=== PATIENT | male | born 1965 | race Caucasian/White ===

== ENCOUNTER → 2024-09-15 | Outpatient (CLI) | payer OTHER, SELFPAY ==
--- NOTE | 2024-09-15 16:21 | XR_ITS ---
Examination: PA lateral chest 2 views TECHNIQUE: Upright PA lateral chest 2 views Exam date and time: September 15, 2024 1635 hours Comparison September 22, 2016 INDICATIONS: Shortness of breath beginning 2 years ago. FINDINGS: Normal heart size Lungs are clear. The osseous structures are intact IMPRESSION: No active disease
[2024-09-15 16:51] LABS: Basophils # (Auto) 0.1 Thou/mm3 (0.0-0.2); Basophils % (Auto) 1 % (0-2.5); Eosinophils # (Auto) 0.2 Thou/mm3 (0.0-0.5); Eosinophils % (Auto) 3 % (0-10); Hematocrit 44.6 % (41.0-53.0); Hemoglobin 15.2 g/dL (13.5-16.0); Immature Granulocytes % (Auto) 0 % (0-0); Immature Granulocytes Auto 0.03 Thou/mm3 (0.00-0.00); Lymphocytes # (Auto) 2.4 Thou/mm3 (1.0-4.8); Lymphocytes % (Auto) 32 % (10-50); Mean Corpuscular HGB Conc 34.1 g/dl (31.0-37.0); Mean Corpuscular Hemoglobin 29.4 pg (25.0-35.0); Mean Corpuscular Volume 86 fL (80-100); Monocytes # (Auto) 0.5 Thou/mm3 (0.0-0.8); Monocytes % (Auto) 7 % (0-12); Neutrophils # (Auto) 4.2 Thou/mm3 (1.8-7.7); Neutrophils % (Auto) 57 % (37-80); Nucleated Red Blood Cell % 0 /100 WBC (0); Platelet Count 360 Thou/mm3 (140-440); RDW Standard Deviation 41.3 fL (35.1-43.9); Red Blood Count 5.17 Miln/mm3 (4.50-5.90); White Blood Count 7.4 Thou/mm3 (3.8-10.6)
[2024-09-15 17:15] LABS: Glucose Estimated Average 97 mg/dL (80-131)
[2024-09-15 17:21] LABS: Vitamin D 25 Hydroxy Total 19.6 ng/mL (7.3-40.2)
[2024-09-15 17:42] LABS: Alanine Aminotransferase 50 U/L (10-49); Albumin, Serum 4.5 gm/dL (3.5-5.0); Albumin/Globulin Ratio 1.8 (1.2-2.2); Alkaline Phosphatase 84 U/L (46-116); Anion Gap 5 (7-16); Aspartate Amino Transferase 44 U/L (0-34); BUN/Creatinine Ratio 9 Ratio (12-20); Bilirubin,Total 0.7 mg/dL (0.3-1.2); Blood Urea Nitrogen 11 mg/dL (9-23); Calcium 9.5 mg/dL (8.3-10.6); Calcium (Corrected) 9.5 mg/dL (8.5-10.1); Carbon Dioxide 26.8 mMol/L (20.0-31.0); Chloride 107 mMol/L (98-107); Creatinine (Component) 1.2 mg/dL (0.6-1.3); Free T4 (Free Thyroxine) 1.72 ng/dL (0.89-1.76); Globulin 2.5 gm/dL (2.3-3.5); Glucose 87 mg/dL (74-106); Magnesium 2.4 mg/dL (1.6-2.6); Osmolality,Calculated 275 (275-295); Sodium 139 mMol/L (136-145); Thyroid Stimulating Hormone 0.98 uIU/mL (0.55-4.78); eGFR > 60 See Note
== END | disposition home or self-care (01) ==
PROVIDERS: PCP Internal Medicine; Referring Provider Internal Medicine; Visit Provider Radiology Diagnostic Radiology
DX: R06.09 Other forms of dyspnea (principal); E87.5 Hyperkalemia; E03.9 Hypothyroidism, unspecified; R53.83 Other fatigue
CPT/HCPCS: 36415; 71046; 80053; 82306; 83036; 83735; 84439; 84443; 85025

== ENCOUNTER → 2025-02-20 | Outpatient (CLI) | payer OTHER, SELFPAY ==
--- NOTE | 2025-02-20 | XR_ITS ---
Examination: PA lateral chest 2 views TECHNIQUE: Upright PA lateral chest 2 views Exam date and time: February 20, 2025 1315 hours INDICATIONS: Shortness of breath today. FINDINGS: Early bibasilar pneumonia Normal heart size The osseous structures are intact IMPRESSION: Early bibasilar pneumonia
[2025-02-20 13:33] LABS: Misc Send Out* See Sep Rpt
== END | disposition home or self-care (01) ==
PROVIDERS: PCP Nurse Practitioner Family; Referring Provider Nurse Practitioner Family; Visit Provider Radiology Diagnostic Radiology
DX: J18.9 Pneumonia, unspecified organism (principal); Z79.899 Other long term (current) drug therapy
CPT/HCPCS: 71046

== ENCOUNTER → 2025-02-21 | Outpatient (CLI) | payer OTHER, SELFPAY ==
--- NOTE | 2025-02-21 10:34 | XR_ITS ---
Examination: Diagnostic digital mammography, bilateral Computer aided detection 3-D breast Tomosynthesis, bilateral Date and time of exam: February 21, 2025 1121 hours Compared to mammograms dating to October 05, 2022 INDICATIONS: Bilateral breast lumps beginning 7 months ago Technique: Nonmagnified MLO, CC views of the breasts to been obtained, reconstructed from 3-D Tomosynthesis images. R2 computer aided detection program utilized for evaluation of suspicious masses and/or abnormal calcifications. 3-D Tomosynthesis images obtained. Findings: The breasts are heterogeneously dense, which may obscure small masses 12 mm focal asymmetry inner right breast CC view, posterior depth, 4.3 cm from the nipple noted also on the spot compression views Impression: BI-RADS Category 3: Probably benign findings One additional 6 month right mammogram follow-up is needed to document stability of 12 mm focal asymmetry inner right breast noted on the current CC view.
--- NOTE | 2025-02-21 10:36 | XR_ITS ---
Examination: Breast ultrasound complete, bilateral Date and time of exam: February 21, 2025 1108 hours INDICATIONS: Bilateral breast enlargement cardiac and pain beginning one month ago Technique: Real-time grayscale ultrasonographic imaging bilateral breasts, including all 4 quadrants as well as nipple retroareolar and axillary regions. Findings: Sonographic images right breast Retroareolar probable glandular tissue 3.6 x 1.4 x 4.0 cm Sonographic images left breast Probable retroareolar glandular tissue 4.1 x 1.7 x 3.8 cm IMPRESSION: BI-RADS Category 3: Probably benign findings One additional 3-6 month follow-up bilateral breast sonography is needed to document stability of probable glandular tissue in both breasts described above
== END | disposition home or self-care (01) ==
PROVIDERS: PCP Internal Medicine; Referring Provider Nurse Practitioner Family; Visit Provider Nurse Practitioner Family
DX: N64.89 Other specified disorders of breast (principal); R92.333 Mammographic heterogeneous density, bilateral breasts
CPT/HCPCS: 76641; 77062; 77066; G0279

== ENCOUNTER → 2025-03-23 | Outpatient (CLI) | payer OTHER, SELFPAY ==
--- NOTE | 2025-03-23 16:25 | XR_ITS ---
Examination: PA lateral chest 2 views TECHNIQUE: Upright PA and lateral chest 2 views Date and time: March 23, 2025 1703 hours INDICATIONS: Pneumonia on earlier chest films including February 20, 2025 FINDINGS: Normal heart size No current pneumonia The osseous structures are demineralized IMPRESSION: No pneumonia currently identified
== END | disposition home or self-care (01) ==
PROVIDERS: PCP Nurse Practitioner Family; Referring Provider Nurse Practitioner Family; Visit Provider Nurse Practitioner Family
DX: J18.9 Pneumonia, unspecified organism (principal)
CPT/HCPCS: 71046

== ENCOUNTER → 2025-06-29 | Outpatient (CLI) | payer OTHER, SELFPAY ==
--- NOTE | 2025-06-29 15:30 | XR_ITS ---
Examination: CT brain head without contrast. 2-D sagittal coronal reconstructions Date and time of exam:June 29, 2025, 1527 hours INDICATIONS: Intermittent disorientation and disequilibrium several weeks CTDI: vol (mGy):52.6 DLP: (mGycm):1097 Technique: Multiple CT axial sections of the brain have been obtained, 5 mm slice thickness. Contrast has not been administered. 2-D sagittal, coronal reconstructions have been obtained Low dose protocols were performed. One or more of the following dose reduction techniques were used; automated exposure control, adjustment of the mA and/or KV according to patient size, use of iterative reconstruction technique. Findings: No significant ventricular enlargement. Intra-axial or extra-axial hemorrhage density is not seen. No mass effect or midline shift Basal cisterns are not remarkable. Fourth ventricle is midline. Cranial vault intact. Impression: Negative for acute hemorrhage, mass effect or midline shift If symptoms persist, consider brain MRI MRA without contrast, stroke protocol, follow-up
== END | disposition home or self-care (01) ==
PROVIDERS: PCP Nurse Practitioner Family; Referring Provider Nurse Practitioner Family; Visit Provider Nurse Practitioner Family
DX: R41.0 Disorientation, unspecified (principal)
CPT/HCPCS: 70450

== ENCOUNTER 2025-09-13 09:39 | Inpatient (IN) | payer OTHER, SELFPAY ==
[2025-09-13 09:45] VITALS: BP 145/93; PULSE 120; RESP 16; TEMP 36.8; O2SAT 96; BMI 27.0
--- NOTE | 2025-09-13 09:56 | XR_ITS ---
EXAMINATION: AP chest single view TECHNIQUE: AP portable upright chest single view Date and time: September 13, 2025, 1053 hours, comparison March 23, 2025 INDICATIONS: Chest pain shortness of breath beginning today. FINDINGS: Poor inspiratory effort Normal heart size The Nitish structures are demineralized Probable mild atelectasis left base IMPRESSION: Poor inspiratory effort chest x-ray
--- NOTE | 2025-09-13 09:56 | EKG_ITS ---
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: : 1965 Requested By: Dashawn Martinez (CHANDAN) Order Number: [id number] Reading MD: Dashawn Martinez (SCISSORS SHARPENER) Measurements Intervals [place] Rate: 109 P: 43 CT: 175 QRS: 68 QRSD: 114 T: 93 QT: 353 QTc: 477 Interpretive Statements SINUS TACHYCARDIA POSSIBLE INFERIOR MYOCARDIAL INFARCTION , PROBABLY OLD [30 ms Q WAVE IN II/aVF] MODERATE T-WAVE ABNORMALITY, CONSIDER ANTEROLATERAL ISCHEMIA [-0.1+ mV T-WAVE IN V3-V6] Compared to ECG 11/15/2023 16:45:19 Myocardial infarct finding now present T-wave abnormality now present Possible ischemia now present Sinus rhythm no longer present /store/S0/[id number]/[id number].pdf
--- NOTE | 2025-09-13 10:08 | XR_ITS ---
Examination: CT abdomen and pelvis without contrast. Coronal 3-D reconstructions. Sagittal 2-D reconstructions. Date and time of exam: September 13, 2025, 1025 hours, comparison November 15, 2023 INDICATIONS: Onset mid abdominal pain with nausea vomiting today CTDI: vol (mGy): 6.82 DLP: (mGycm): 429 Technique: Axial images of the abdomen have been obtained, 3 mm slice thickness Intravenous contrast material has not been administered. Low dose protocols were performed. One or more of the following dose reduction techniques were used; automated exposure control, adjustment of the mA and/or KV according to patient size, use of iterative reconstruction technique. Findings: No focal liver lesions No gallstones Spleen is not enlarged No pancreatic or adrenal mass Bilateral 1 to 2 mm renal calculi, perinephric stranding, no hydronephrosis or ureteral calculi No pericecal inflammatory change Multiple fluid distended air distended small bowel loops in the anterior abdomen 8 mm fat-containing umbilical hernia Contracted urinary bladder Transverse prostate dimension 4.3 cm Significant osteopenia with advanced degenerative disc disease L4-L5 IMPRESSION: Small bowel obstruction pattern, consider Gastrografin small bowel series follow-up
--- NOTE | 2025-09-13 10:10 | XR_ITS ---
Examination: Abdomen sonogram, Limited Date and time of exam: September 13, 2025, 12:21 p.m. INDICATIONS: Onset mid abdominal pain today Technique: Real-time england scale transabdominal sonographic images of the upper abdomen obtained. Findings: Normal gallbladder Normal common bile duct 0.4 cm Pancreatic head 2.4 cm Liver 12.2 cm fatty infiltration no focal liver lesions Normal hepatopetal portal venous flow Patent IVC IMPRESSION: Normal gallbladder Normal common bile duct
[2025-09-13 10:13] LABS: Basophils # (Auto) 0.0 Thou/mm3 (0.0-0.2); Basophils % (Auto) 0 % (0-2.5); Eosinophils # (Auto) 0.0 Thou/mm3 (0.0-0.5); Eosinophils % (Auto) 0 % (0-10); Hematocrit 48.0 % (41.0-53.0); Hemoglobin 16.6 g/dL (13.5-16.0); Immature Granulocytes Auto 0.05 Thou/mm3 (0.00-0.00); Lymphocytes # (Auto) 0.9 Thou/mm3 (1.0-4.8); Lymphocytes % (Auto) 8 % (10-50); Mean Corpuscular HGB Conc 34.6 g/dl (31.0-37.0); Mean Corpuscular Hemoglobin 29.6 pg (25.0-35.0); Mean Corpuscular Volume 86 fL (80-100); Monocytes # (Auto) 0.4 Thou/mm3 (0.0-0.8); Monocytes % (Auto) 4 % (0-12); Neutrophils # (Auto) 9.8 Thou/mm3 (1.8-7.7); Neutrophils % (Auto) 88 % (37-80); Nucleated Red Blood Cell # 0.00 Thou/mm3 (0.00-0.00); Nucleated Red Blood Cell % 0 /100 WBC (0); Platelet Count 353 Thou/mm3 (140-440); RDW Standard Deviation 40.3 fL (35.1-43.9); Red Blood Count 5.61 Miln/mm3 (4.50-5.90); White Blood Count 11.2 Thou/mm3 (3.8-10.6)
[2025-09-13 10:17] VITALS: PULSE 103; RESP 14; RESP 94
[2025-09-13 10:23] LABS: INR 1.0 (0.9-1.3); Partial Thromboplastin Time 29.1 Seconds (22.0-36.0); Prothrombin Time 10.6 Seconds (9.0-12.2)
[2025-09-13 10:28] LABS: B-Type Natriuretic Peptide < 20 pg/mL (0-100)
[2025-09-13 10:33] LABS: Alanine Aminotransferase 53 U/L (10-49); Albumin, Serum 5.0 gm/dL (3.5-5.0); Albumin/Globulin Ratio 1.7 (1.2-2.2); Alkaline Phosphatase 86 U/L (46-116); Anion Gap 12 (7-16); Aspartate Amino Transferase 36 U/L (0-34); BUN/Creatinine Ratio 7 Ratio (12-20); Bilirubin,Total 0.8 mg/dL (0.3-1.2); Blood Urea Nitrogen 9 mg/dL (9-23); Calcium 10.0 mg/dL (8.3-10.6); Calcium (Corrected) 10.0 mg/dL (8.5-10.1); Carbon Dioxide 23.4 mMol/L (20.0-31.0); Chloride 104 mMol/L (98-107); Creatinine (Component) 1.3 mg/dL (0.6-1.3); Estimated Creatinine Clearance 61.2 mL/min (>60); Globulin 2.9 gm/dL (2.3-3.5); Glucose 131 mg/dL (74-106); Lipase 22 U/L (12-53); Magnesium 2.1 mg/dL (1.6-2.6); Osmolality,Calculated 278 (275-295); Potassium 4.0 mMol/L (3.4-5.1); Sodium 139 mMol/L (136-145); Total Protein 7.9 gm/dL (5.7-8.2); Troponin I < 0.002 ng/mL (0.0-0.045); eGFR > 60 See Note
[2025-09-13] MEDS: MORPHINE SULF INJ 4 MG/ML VIAL IVP (10:36)
[2025-09-13 10:37] VITALS: BP 169/105; PULSE 102
[2025-09-13] MEDS: ONDANSETRON INJ 2 MG/ML INJ 2 ML 4 MG IVP ×2 (10:37→15:35)
[2025-09-13] MEDS: METOPROLOL TARTRATE INJ 1 MG/ML AMP 5 ML 5 MG IVP (10:37)
[2025-09-13 11:30] VITALS: BP 141/94; PULSE 88; RESP 15; TEMP 36.8; O2SAT 98
--- NOTE | 2025-09-13 11:32 | PD.EDABDPN ---
ED Abdominal Pain RME/HPI General Chief Complaint: Abdominal Pain Stated complaint: ABD PAIN, DISTENDED Time seen by provider: 09/13/25 09:55 Arrival date/time: 09/13/25 09:39 Limitations: no limitations RME / HPI RME / HPI narrative: 60 year old male with history of atrial fibrillation, hypertension, hypothyroidism presents to the ED for evaluation of abdominal pain today. Pain described as aching and feeling bloated, rating as moderate. Accompanied by nausea. Denies any known modifying factors at home. Denies any fevers, chills, chest pain, cough, diarrhea, or urinary symptoms. Related Data Home Medications ?Medication ?Instructions ?Recorded ?Confirmed gabapentin 600 mg tablet 600 mg PO TID #0 tabs 09/22/16 05/20/18 zolpidem 12.5 mg tablet,extended 12.5 mg PO HS #0 mg 09/22/16 05/20/18 release,multiphase (Ambien CR) aspirin 81 mg chewable tablet 81 mg PO QDAY ##0 12/15/16 05/20/18 carvedilol 3.125 mg tablet (Coreg) 3.125 mg PO BID #0 tabs 12/15/16 05/20/18 lisinopril 20 mg tablet 20 mg PO BID #0 tabs 12/15/16 05/20/18 Levothyroxine * (SYNTHROID *) 25 mcg PO QDAY #0 tabs 08/17/17 05/20/18 Previous Rx's ?Medication ?Instructions ?Recorded hydrochlorothiazide 25 mg tablet 50 mg (2 x 25 mg) PO QAM #30 tabs 10/02/16 Allergies Allergy/AdvReac Type Severity Reaction Status Date / Time niacin Allergy Verified 09/13/25 09:40 FLU VACCINE Allergy Severe guillain Uncoded 09/13/25 09:44 barre Review of Systems Review of Systems Systems Reviewed: All systems reviewed, normal except as documented Past Medical History Past Medical History NEUROLOGIC: Positive Migraine CARDIAC: Positive Atrial Fibrillation, Hypercholesterolemia and Hypertension ENDOCRINE: Positive Hypothyroidism Surgical History SURGICAL: Positive Knee Sx (RIGHT KNEE REPLACEMENT) and of Back Surgery OTHER SURGICAL HX: 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 Social History SMOKING STATUS: Never smoker ED Exam General Limitations: Present no limitations General appearance: Present alert and in no apparent distress Head Head exam: Present atraumatic and normocephalic Eye Eye exam: Present normal appearance, PERRL and EOMI ENT ENT exam: Present normal exam, normal oropharynx and mucous membranes moist Neck Neck exam: Present normal inspection, full ROM and trachea midline Chest Chest inspection: Present normal inspection and symmetric chest wall rise Respiratory Respiratory exam: Present normal lung sounds bilaterally Cardiovascular Cardiovascular exam: Present regular rate, normal rhythm and normal heart sounds Abdominal Exam Abdominal exam: Present soft, distention, tenderness (to mid upper abdomen), normal bowel sounds and other (high pitched bowel sounds ) Extremities Exam Extremities exam: Present normal inspection and full ROM Back Exam Back exam: Present normal inspection and full ROM Neurological Exam Neurological exam: Present alert, oriented X3 and CN II-XII intact Psychiatric Psychiatric exam: Present normal affect and normal mood Skin Skin exam: Present warm, dry, intact and normal color Course Quality Measures none Orders Category Date Time Status Admit to Inpatient Status Routine Admission 09/13/25 14:49 Active Patient Condition Routine Admission 09/13/25 14:49 Ordered COVID-19 Screening Questionnaire NOW Care 09/13/25 13:54 Active Button Breaker NOW Care 09/13/25 09:56 Active Continuous Pulse Oximetry NOW Care 09/13/25 10:06 Completed Decision to Admit X1 Care 09/13/25 13:53 Completed EKG (ED ONLY) *Do not use* NOW Care 09/13/25 09:56 Completed Insert IV NOW Care 09/13/25 09:56 Active Insert NG / OG tube NOW Care 09/13/25 14:54 Active Miscellaneous Nursing Order NOW Care 09/13/25 15:20 Active NG / OG Tube to LIS NOW Care 09/13/25 14:54 Active NPO NOW Care 09/13/25 14:50 Active Notify provider NEEDED Care 09/13/25 14:49 Active Diet NPO (NOW) Diet 09/13/25 14:[address] abdomen pelvis wo con Stat Exams 09/13/25 10:08 Completed EKG (ED Only) Stat Exams 09/13/25 09:56 Draft US gall bladder Stat Exams 09/13/25 10:10 Completed XR chest 1V portable Stat Exams 09/13/25 09:56 Completed XR small bowel double contrast Stat Exams 09/13/25 13:52 Ordered B-Type Natriuretic Peptide Stat Lab 09/13/25 10:03 Completed CBC AM DRAW Lab 09/14/25 05:00 Ordered CBC AM DRAW Lab 09/15/25 05:00 Ordered CBC AM DRAW Lab 09/16/25 05:00 Ordered CBC AM DRAW Lab 09/17/25 05:00 Ordered CBC AM DRAW Lab 09/18/25 05:00 Ordered CBC AM DRAW Lab 09/19/25 05:00 Ordered CBC AM DRAW Lab 09/20/25 05:00 Ordered CBC AM DRAW Lab 09/21/25 05:00 Ordered CBC AM DRAW Lab 09/22/25 05:00 Ordered CBC AM DRAW Lab 09/23/25 05:00 Ordered CBC Stat Lab 09/13/25 10:03 Completed Comprehensive Metabolic Panel AM DRAW Lab 09/14/25 05:00 Ordered Comprehensive Metabolic Panel AM DRAW Lab 09/15/25 05:00 Ordered Comprehensive Metabolic Panel AM DRAW Lab 09/16/25 05:00 Ordered Comprehensive Metabolic Panel AM DRAW Lab 09/17/25 05:00 Ordered Comprehensive Metabolic Panel AM DRAW Lab 09/18/25 05:00 Ordered Comprehensive Metabolic Panel AM DRAW Lab 09/19/25 05:00 Ordered Comprehensive Metabolic Panel AM DRAW Lab 09/20/25 05:00 Ordered Comprehensive Metabolic Panel AM DRAW Lab 09/21/25 05:00 Ordered Comprehensive Metabolic Panel AM DRAW Lab 09/22/25 05:00 Ordered Comprehensive Metabolic Panel AM DRAW Lab 09/23/25 05:00 Ordered Comprehensive Metabolic Panel Stat Lab 09/13/25 10:03 Completed Drug Screen,Urine Stat Lab 09/13/25 12:57 Completed Lipase Stat Lab 09/13/25 10:03 Completed Magnesium AM DRAW Lab 09/14/25 05:00 Ordered Magnesium AM DRAW Lab 09/15/25 05:00 Ordered Magnesium AM DRAW Lab 09/16/25 05:00 Ordered Magnesium AM DRAW Lab 09/17/25 05:00 Ordered Magnesium AM DRAW Lab 09/18/25 05:00 Ordered Magnesium AM DRAW Lab 09/19/25 05:00 Ordered Magnesium AM DRAW Lab 09/20/25 05:00 Ordered Magnesium AM DRAW Lab 09/21/25 05:00 Ordered Magnesium AM DRAW Lab 09/22/25 05:00 Ordered Magnesium AM DRAW Lab 09/23/25 05:00 Ordered Magnesium Stat Lab 09/13/25 10:03 Completed Partial Thromboplastin Time Stat Lab 09/13/25 10:03 Completed Phosphorous AM DRAW Lab 09/14/25 05:00 Ordered Phosphorous AM DRAW Lab 09/15/25 05:00 Ordered Phosphorous AM DRAW Lab 09/16/25 05:00 Ordered Phosphorous AM DRAW Lab 09/17/25 05:00 Ordered Phosphorous AM DRAW Lab 09/18/25 05:00 Ordered Phosphorous AM DRAW Lab 09/19/25 05:00 Ordered Phosphorous AM DRAW Lab 09/20/25 05:00 Ordered Phosphorous AM DRAW Lab 09/21/25 05:00 Ordered Phosphorous AM DRAW Lab 09/22/25 05:00 Ordered Phosphorous AM DRAW Lab 09/23/25 05:00 Ordered Prothrombin Time with INR Stat Lab 09/13/25 10:03 Completed Troponin I Stat Lab 09/13/25 10:03 Completed Urinalysis Stat Lab 09/13/25 12:57 Completed Urinalysis, C/S if Indicated Stat Lab 09/13/25 12:57 Completed HYDROmorphone INJ [Dilaudid Inj] Med 09/13/25 14:08 Discontinued 0.5 mg IVP X1 ONE Heparin Inj Med 09/13/25 21:00 Active 5,000 unit SC Q12HR Metoprolol Tartrate Inj [Lopressor Inj] Med 09/13/25 10:09 Discontinued 5 mg IVP X1 ONE Morphine* Inj Med 09/13/25 14:58 Discontinued 2 mg IVP X1 ONE Morphine* Inj Med 09/13/25 15:00 Discontinued 2 mg IVP X1 ONE Morphine* Inj Med 09/13/25 10:17 Discontinued 4 mg IVP X1 ONE Ondansetron Inj [Zofran Inj] Med 09/13/25 14:49 Active 4 mg IVP Q6H PRN Ondansetron Inj [Zofran Inj] Med 09/13/25 10:17 Discontinued 4 mg IVP X1 ONE Ondansetron Inj [Zofran Inj] Med 09/13/25 14:08 Discontinued 4 mg IVP X1 ONE Pantoprazole Inj [Protonix Inj] Med 09/14/25 09:00 Active 40 mg IVP QDAY Code Status Routine Oth 09/13/25 14:49 Ordered Oxygen Delivery NOW RT 09/13/25 10:06 Active Transfer Order Routine Transfer 09/13/25 15:19 Active See above Vital Signs Vital signs: Vital Signs Temperature 98.3 F 09/13/25 09:45 Pulse Rate 120 H 09/13/25 09:45 Respiratory Rate 16 09/13/25 09:45 Blood Pressure 145/93 H 09/13/25 09:45 Pulse Oximetry (%) 96 09/13/25 09:45 Oxygen Delivery Method Room Air 09/13/25 09:45 Pulse ox is 96% on room air which is adequate. Abdominal Pain MDM MDM Narrative MDM Narrative:: Nataly Virginiegustavo Gotti am scribing for and in the presence of Dr. Gao. Patient data External records reviewed:: [facility] previous records Clinical information provided by:: patient Social determinants that could affect healthcare access:: none Patient has the following chronic illnesses:: atrial fibrillation, hypertension, hypothyroidism How is presenting disease/condition affected by chronic disease/condition?: uneffected by Evaluation data The following diagnostics were reviewed and interpreted by me:: lab results, radiology exam(s) and EKG tracing(s) (EKG @ 09:57h, interpreted by me, sinus tachycardia, rate 109, no STEMI. ) Lab and/or radiology exams considered but not ordered:: None Interpretation Summary: Ordering Physician: Juan BORRERO)Dashawn NP Date of Service: 09/13/25 Procedure(s): XR chest 1V portable Accession Number(s): [id number] cc: Juan BORRERO)Dashawn NP; Eric Dobbins MD; Abel Henry MD~ EXAMINATION: AP chest single view TECHNIQUE: AP portable upright chest single view Date and time: September 13, 2025, 1053 hours, comparison March 23, 2025 INDICATIONS: Chest pain shortness of breath beginning today. FINDINGS: Poor inspiratory effort Normal heart size The Nitish structures are demineralized Probable mild atelectasis left base IMPRESSION: Poor inspiratory effort chest x-ray Dictated By: Eric Dobbins MD Signed By: <Electronically signed by Eric Dobbins MD in OV> 09/13/25 1111 Ordering Physician: Anirudh Gao MD Date of Service: 09/13/25 Procedure(s): CT abdomen pelvis wo con Accession Number(s): [id number] cc: Anirudh Gao MD; Eric Dobbins MD; Abel Henry MD~ Examination: CT abdomen and pelvis without contrast. Coronal 3-D reconstructions. Sagittal 2-D reconstructions. Date and time of exam: September 13, 2025, 1025 hours, comparison November 15, 2023 INDICATIONS: Onset mid abdominal pain with nausea vomiting today CTDI: vol (mGy): 6.82 DLP: (mGycm): 429 Technique: Axial images of the abdomen have been obtained, 3 mm slice thickness Intravenous contrast material has not been administered. Low dose protocols were performed. One or more of the following dose reduction techniques were used; automated exposure control, adjustment of the mA and/or KV according to patient size, use of iterative reconstruction technique. Findings: No focal liver lesions No gallstones Spleen is not enlarged No pancreatic or adrenal mass Bilateral 1 to 2 mm renal calculi, perinephric stranding, no hydronephrosis or ureteral calculi No pericecal inflammatory change Multiple fluid distended air distended small bowel loops in the anterior abdomen 8 mm fat-containing umbilical hernia Contracted urinary bladder Transverse prostate dimension 4.3 cm Significant osteopenia with advanced degenerative disc disease L4-L5 IMPRESSION: Small bowel obstruction pattern, consider Gastrografin small bowel series follow-up Dictated By: Eric Dobbins MD Signed By: <Electronically signed by Eric Dobbins MD in OV> 09/13/25 1127 Ordering Physician: Anirudh Gao MD Date of Service: 09/13/25 Procedure(s): US gall bladder Accession Number(s): [id number] cc: Anirudh Gao MD; Eric Dobbins MD; Abel Henry MD~ Examination: Abdomen sonogram, Limited Date and time of exam: September 13, 2025, 12:21 p.m. INDICATIONS: Onset mid abdominal pain today Technique: Real-time england scale transabdominal sonographic images of the upper abdomen obtained. Findings: Normal gallbladder Normal common bile duct 0.4 cm Pancreatic head 2.4 cm Liver 12.2 cm fatty infiltration no focal liver lesions Normal hepatopetal portal venous flow Patent IVC IMPRESSION: Normal gallbladder Normal common bile duct Dictated By: Eric Dobbins MD Signed By: <Electronically signed by Eric Dobbins MD in OV> 09/13/25 1310 Medications / Prescriptions Medications or Prescriptions considered but not ordered:: None Medication administrations:: Medication Administration History Heparin Sodium (Porcine) (Heparin Sod Inj 5000 Unit/Ml Vial) 5,000 unit SC Q12HR LIZET Stop: 09/27/25 20:59 Ondansetron HCl (Ondansetron Inj 2 Mg/Ml Inj 2 Ml) 4 mg IVP Q6H PRN; Protocol PRN Reason: NAUSEA OR VOMITING Stop: 10/13/25 14:48 Pantoprazole Sodium (Pantoprazole Inj 40 Mg Vial) 40 mg IVP QDAY LIZET Stop: 10/14/25 08:59 Discontinued Medications Hydromorphone HCl (Hydromorphone Inj 2 Mg/Ml Vial) 0.5 mg IVP X1 ONE Stop: 09/13/25 14:09 Last Admin: 09/13/25 15:35 Dose: 0.5 mg Documented By: VG Metoprolol Tartrate (Metoprolol Tartrate Inj 1 Mg/Ml Amp 5 Ml) 5 mg IVP X1 ONE Stop: 09/13/25 10:10 Last Admin: 09/13/25 10:37 Dose: 5 mg Documented By: VG Morphine Sulfate (Morphine Sulf Inj 4 Mg/Ml Vial) 4 mg IVP X1 ONE Stop: 09/13/25 10:18 Last Admin: 09/13/25 10:36 Dose: 4 mg Documented By: VG Morphine Sulfate (Morphine Sulf Inj 4 Mg/Ml Vial) 2 mg IVP X1 ONE Stop: 09/13/25 14:59 Morphine Sulfate (Morphine Sulf Inj 4 Mg/Ml Vial) 2 mg IVP X1 ONE Stop: 09/13/25 15:01 Ondansetron HCl (Ondansetron Inj 2 Mg/Ml Inj 2 Ml) 4 mg IVP X1 ONE; Protocol Stop: 09/13/25 10:18 Last Admin: 09/13/25 10:37 Dose: 4 mg Documented By: VG Ondansetron HCl (Ondansetron Inj 2 Mg/Ml Inj 2 Ml) 4 mg IVP X1 ONE; Protocol Stop: 09/13/25 14:09 Last Admin: 09/13/25 15:35 Dose: 4 mg Documented By: CANDI See above Consultations Consultation(s) initiated? (list below): Yes Consultation #1 (Physician, Specialty, Details): [id number] with surgeon Dr[address] Palomares. Discussed patients PMHx, HPI, ED course, exam findings, labs, and radiology results. He recommends gastrogrfin small bowel series. He agrees to consult. Consultation #2 (Physician, Specialty, Details): [id number] I spoke with hospitalist team B for admission. Diagnosis Differential diagnosis abdominal pain: abdominal pain, gastroenteritis, pancreatitis and small bowel obstruction Most likely diagnosis given after review of the tests above:: Small bowel obstruction Admission Indicated Admission indicated?: indicated Admission Request Was there a request for admission?: Yes Admission Attestation Admission request attestation: Discussed case with [] from Hospitalist service regarding admission. Discussed patients ED course, exam findings, labs, and radiology results. The Hospitalist [agrees,declines] to accept the patient for admission. Disposition Plan Disposition Plan: Admit Discharge Plan Plan Patient Disposition: Admit Acute Care w/in Hospital Prescriptions/Referrals Prescriptions/Med Rec: No Action gabapentin 600 MG tablet 600 mg PO TID Qty: 0 zolpidem [Ambien CR] 12.5 MG/BOTTLE tablet,ext release multiphase 12.5 mg PO HS Qty: 0 hydrochlorothiazide 25 MG tablet 50 mg PO QAM Qty: 30 0RF lisinopril 20 MG tablet 20 mg PO BID Qty: 0 carvedilol [Coreg] 3.125 MG tablet 3.125 mg PO BID Qty: 0 aspirin 81 MG tablet,chewable 81 mg PO QDAY Qty: 0 Levothyroxine * (SYNTHROID *) 25 MCG tablet 25 mcg PO QDAY Qty: 0 Referrals: Abel Henry([facility]MD [Primary Care Provider, Family Practice] - In 1 week Problem List Clinical Impression: SBO (small bowel obstruction) Patient/Caregiver Discharge Instructions Print Language: Samoan Stand Alone Forms: Mamie Award Info., Patient Portal Info Letter
[2025-09-13 13:01] LABS: Collection Type, Urine Clean Catch; Squamous Epithelial Cell,Urine 0 /hpf (0-5)
[2025-09-13 13:02] VITALS: BP 155/80; PULSE 92; RESP 16; TEMP 36.9; O2SAT 98
[2025-09-13 13:35] LABS: Amphetamine/Methamp Scrn,U Negative (Negative); Barbiturate Screen,Urine Negative (Negative); Benzodiazepines Screen,Urine Negative (Negative); Benzoylecgonine Screen, Ur Negative (Negative); Fentanyl Screen,Urine Negative (Negative); Opiate Screen,Urine Positive (Negative); THC Screen,Urine Negative (Negative)
[2025-09-13 13:38] LABS: Bacteria,Urine Rare; Bilirubin,Urine 1+ (Negative); Blood,Urine Negative (Negative); Clarity,Urine Clear (Clear/Hazy); Color,Urine Yellow (Lt Yel-Yel); Culture Indicated,Urine Not Indicated; Glucose, Urine Negative (Negative); Ketones,Urine 1+ (Negative); Leukocyte Esterase,Urine Negative (Negative); Nitrite,Urine Negative (Negative); PH,Urine 7.0 (5.0-7.0); Protein,Urine 1+ (Neg - Trace); RBC,Urine 2 /hpf (0-3); Specific Gravity,Urine 1.039 (1.001-1.035); Urobilinogen,Urine 3.0 mg/dL (0.0-1.0); WBC,Urine 2 /hpf (0-5)
--- NOTE | 2025-09-13 13:52 | XR_ITS ---
EXAMINATION: Small bowel series AP abdomen 3 views Date and time: September 30, 2025, 1418 hours INDICATIONS: No bowel movement with nausea vomiting this week, small bowel obstruction pattern on CT abdomen/pelvis study this morning TECHNIQUE AND FINDINGS: 120 cc Gastrografin administered AP portable semiupright abdomen films, immediate, 30 minutes, 1 hour Contrast in distended small bowel loops IMPRESSION: Small bowel obstruction pattern Recommend follow-up abdomen films 6:00 p.m. APM 10:00 p.m.
--- NOTE | 2025-09-13 15:21 | ESHP_ITS ---
<Statement entered by Jeremiah Teixeira MD - 09/14/25 15:14> Patient seen and examined at bedside. I discussed and supervised with the production intern physician who took care of this patient. I personally saw and examined the patient. I agree with most of the assessment and plan. Plan of care discussed with attending Dr. Kelsea Teixeira MD PGY-2 Documentation for date of: 09/13/25 HPI History of Present Illness History of present illness: History of Present Illness: Anirudh Thakur is 60yM with PMH of Chronic Lyme disease, A-fib, CKD stage III disease, hypertension, hypothyroid, chronic pain, presented to the ED on 09/13/2025 with worsening upper abdominal pain since last night. At the time, patient was eating some nuts, during which he started to feel progressive and constant upper abdominal pelvic pain accompanied by extreme nauseous and headache. He noted that he did have some bowel movement after the symptoms started. Patient does not have any pain in his lower abdomen or on the sides. Denies chest pain, palpation, SOB, fevers or chills. Patient will be admitted for management of Small Bowel Obstruction. *During admission, NG tube was ordered, however, patient refused it due to discomfort. Explained thoroughly about risks and benefits, including aspiration risks. Offered lidocaine gel and IV morphine 2mg x1 to reduce the pain and discomfort, but patient ultimately refused. Will discuss this with the patient again* ED course: Vitals: 98.3 F, ID 120, RR 16, BP 145/93, 96% O2 saturation on room air. Labs: WBC 11.2, Hgb 16.6, potassium 4.0, anion gap 12, Cr 1.3, eGFR>60, Glucose 131, UA: Clear yellow urine, Urine protein 1+, Urine Ketones 1+ CXR (09/13/2025): Poor inspiratory effort chest x-ray Gallbladder US (09/13/2025): Normal gallbladder, Normal common bile duct CT abd/pelvis (09/13/2025): Small bowel obstruction pattern Gastrografin X-ray series, 1st (09/13/2025): Small bowel obstruction pattern In ED, patient was given IV hydromorphone 0.5 mg x 1 ,IV morphine 4 mg x 1, IV morphine 2 mg x 2, IV ondansetron 4 mg x 2, and IV metoprolol 5 mg Medical history: As stated above Surgical history: Hernia surgeries decades ago. Allergies: Niacin and flu vaccine Medications: Pending official med rec Family history: Noncontributory Social history: Denies smoking cigarettes, drinking alcohol or using other illicit drugs Review of Systems Review of Systems Narrative Review of Systems: All 12 systems assessed and the patient denies unless otherwise stated in HPI Exam Vital Signs Temp Pulse Resp BP Pulse Ox O2 Del Method 98.5 F 92 16 155/80 H 98 Room Air 09/13/25 13:02 09/13/25 13:02 09/13/25 13:02 09/13/25 13:02 09/13/25 13:02 09/13/25 13:02 Narrative Exam General: Well nourished, AAO x3 Eye: PERRL, EOMI, normal conjunctiva, no scleral icterus HENT: Normocephalic, atraumatic, hearing intact to conversation at normal volume, moist oral mucosa Neck: Supple, non-tender, no JVD, no lymphadenopathy Lungs: Non-labored respirations, symmetric chest rise, Clear to auscultate bilaterally, No wheezing, rhonchi, crackles Heart: Peripheral pulses intact bilaterally, Regular Rate and Rhythm. Abdomen: Soft, no palpable masses, Slight distended upper abdomen. Musculoskeletal: Normal range of motion and strength, No cyanosis or edema, No visible joint swelling Skin: Skin is warm, dry, no rashes or lesions. Psychiatric: Cooperative, appropriate mood and affect, Awake and alert, not agitated Neuro: Cranial nerves II-XII grossly intact. Strength 5/5 throughout. Sensations intact to light touch. Results: Labs 09/14/25 05:35 09/14/25 05:35 Labs: Short CBC 09/13/25 Range/Units 10:03 WBC 11.2 H (3.8-10.6) Thou/mm3 Hgb 16.6 H (13.5-16.0) g/dL Hct 48.0 (41.0-53.0) % Plt Count 353 (140-440) Thou/mm3 BMP 09/13/25 10:03 Sodium 139 Potassium 4.0 Chloride 104 Carbon Dioxide 23.4 BUN 9 Creatinine 1.3 Glucose 131 H Calcium 10.0 Cardiac Enzymes 09/13/25 Range/Units 10:03 Troponin I < 0.002 (0.0-0.045) ng/mL Liver Function 09/13/25 Range/Units 10:03 Total Bilirubin 0.8 (0.3-1.2) mg/dL AST 36 H (0-34) U/L ALT 53 H (10-49) U/L Alkaline Phosphatase 86 (46-116) U/L Albumin 5.0 (3.5-5.0) gm/dL Urine 09/13/25 Range/Units 12:57 Urine Color Yellow (Lt Yel-Yel) Urine Clarity Clear (Clear/Hazy) Urine pH 7.0 (5.0-7.0) Ur Specific [place] 1.039 H (1.001-1.035) Urine Protein 1+ A (Neg - Trace) Urine Glucose (UA) Negative (Negative) Quality Measures Quality Measures VTE prophylaxis Medications Home Medications and Allergies Home Medications ?Medication ?Instructions ?Recorded ?Confirmed ?Type gabapentin 600 mg tablet 600 mg PO TID #0 tabs 09/13/25 History zolpidem 12.5 mg tablet,extended 12.5 mg PO HS #0 mg 1 11/22/15 09/13/25 History release,multiphase (Ambien CR) aspirin 81 mg chewable tablet 81 mg PO QDAY ##0 09/13/25 History carvedilol 3.125 mg tablet (Coreg) 3.125 mg PO BID #0 tabs 12/15/16 09/13/25 History Levothyroxine * (SYNTHROID *) 25 mcg PO QDAY #0 tabs 1 09/13/25 History amiodarone 200 mg tablet 200 mg PO QDAY 09/13/2509/01 History eplerenone 50 mg tablet 50 mg PO QDAY 09/13/2509/13 History ergocalciferol (vitamin D2) 1,250 1,250 mcg PO .QSatur day 09/13/25 09/13/25 History mcg (50,000 unit) capsule hydrocodone 10 mg-acetaminophen 1 tab PO Q6H PRN pain 09/13/25 09/13/25 History 325 mg tablet Allergies Allergy/AdvReac Type Severity Reaction Status Date / Time niacin Allergy Verified 09/13/25 09:40 FLU VACCINE Allergy Severe guillain Uncoded 09/13/25 09:44 barre Visit Medications Heparin Sodium (Porcine) (Heparin Sod Inj 5000 Unit/Ml Vial) 5,000 unit SC Q12HR LIZET Stop: 09/27/25 20:59 Ondansetron HCl (Ondansetron Inj 2 Mg/Ml Inj 2 Ml) 4 mg IVP Q6H PRN; Protocol PRN Reason: NAUSEA OR VOMITING Stop: 10/13/25 14:48 Pantoprazole Sodium (Pantoprazole Inj 40 Mg Vial) 40 mg IVP QDAY LIZET Stop: 10/14/25 08:59 Discontinued Medications Hydromorphone HCl (Hydromorphone Inj 2 Mg/Ml Vial) 0.5 mg IVP X1 ONE Stop: 09/13/25 14:09 Metoprolol Tartrate (Metoprolol Tartrate Inj 1 Mg/Ml Amp 5 Ml) 5 mg IVP X1 ONE Stop: 09/13/25 10:10 Last Admin: 09/13/25 10:37 Dose: 5 mg Morphine Sulfate (Morphine Sulf Inj 4 Mg/Ml Vial) 4 mg IVP X1 ONE Stop: 09/13/25 10:18 Last Admin: 09/13/25 10:36 Dose: 4 mg Morphine Sulfate (Morphine Sulf Inj 4 Mg/Ml Vial) 2 mg IVP X1 ONE Stop: 09/13/25 14:59 Morphine Sulfate (Morphine Sulf Inj 4 Mg/Ml Vial) 2 mg IVP X1 ONE Stop: 09/13/25 15:01 Ondansetron HCl (Ondansetron Inj 2 Mg/Ml Inj 2 Ml) 4 mg IVP X1 ONE; Protocol Stop: 09/13/25 10:18 Last Admin: 09/13/25 10:37 Dose: 4 mg Ondansetron HCl (Ondansetron Inj 2 Mg/Ml Inj 2 Ml) 4 mg IVP X1 ONE; Protocol Stop: 09/13/25 14:09 Assessment & Plan Plan Anirudh Thakur is 60yM with PMH of Chronic Lyme disease, A-fib, CKD stage III disease, hypertension, hypothyroid, chronic pain, presented to the ED on 09/13/2025 with worsening upper abdominal pain since last night. Patient will be admitted for management of Small Bowel Obstruction #SBO #Hx of Hernia repair -progressive and constant upper abdominal pelvic pain accompanied by extreme nausea and headache. -Gallbladder US (09/13/2025): Normal gallbladder, Normal common bile duct -CT abd/pelvis (09/13/2025): Small bowel obstruction pattern -Gastrografin X-ray series, 1st (09/13/2025): Small bowel obstruction pattern *During admission, NG tube was ordered, however, patient refused it due to discomfort. Explained thoroughly about risks and benefits, including aspiration risks. Offered lidocaine gel and IV morphine 2mg x1 to reduce the pain and discomfort, but patient ultimately refused. Will discuss this with the patient again* Plan: -Possibly NG tube placement -IV morphine 1mg q6hr prn -IVF LR 75ml/hr -Continue to monitor Gastrografin X-ray series -Will consult General Surgery if it does not improve by tomorrow. #Hx of A-fib -on Home Amiodarone 200mg po qd -EKG unremarkable -Will resume based on tomorrow's result. If not, will start IV #Hx of CKD stage 3 - Cr 1.3, eGFR>60 -Will Continue to monitor #HTN -Med rec pending -Resume meds once condition improves #Hx of Hypothyrodism -Med rec pending -Resume meds once condition improves Disposition: Tele med Diet: NPO GI prophylaxis: IV protonix 40mg qd DVT prophylaxis: Heparin 5000 units SC q12hr Code: FULL code Assessment and plan discussed with my attending physician Dr. Enamorado and Dr. Teixeira (PGY-2) Dr. Hassan (PGY-1) - Internal medicine resident Attending Provider Attestation/Addendum I have seen and examined the patient. I was physically present for the griffin portions of the services provided including history, physical exam, diagnosis, treatment plans and orders. I agree with assessment and plan of care as documented by residents. After examination of the patient and review of the clinical data I feel that this patient needs admission to the hospital for further treatment/evaluation. Even though this this note was carefully revised there may still be minor errors in cord tire builder due to voice recognition software. Gudelia Enamorado MD
--- NOTE | 2025-09-13 15:30 | PC.NURSE ---
Pt attempted to have a BM. BM unsuccessful.
[2025-09-13] MEDS: HYDROmorphone INJ 2 MG/ML VIAL 0.5 MG IVP (15:35)
--- NOTE | 2025-09-13 15:35 | PC.NURSE ---
Pt had an episode of nausea and vomiting.
--- NOTE | 2025-09-13 15:50 | PC.NURSE ---
Attempted to place NG tube, pt did not tolerate well. Admitting provider at bedside and aware pt is refusing NG tube. Per provider okay to leave out for now since pt is not nauseous or vomiting. Admitting RN called and notified.
[2025-09-13 16:46] VITALS: BMI 27.0
--- NOTE | 2025-09-13 17:50 | PC.NURSE ---
Notified Dr. Teixeira that patient was able to have bowel movements, solid followed by liquid. Pt refusing NGT unless absolutely necessary. Dr. Teixeira stated ok to hold off but NGT will be necessary if patient starts to have nausea and vomitting. Pt. aware and agreeable.
[2025-09-13] MEDS: RINGERS LACTATED 1000 ML 1,000 ML 75 ML IV (17:54)
--- NOTE | 2025-09-13 18:30 | XR_ITS ---
Examination: Abdomen AP single view Technique: AP portable supine abdomen, single view Exam date and time: September 13, 2025, 1833 hours INDICATIONS: 4-hour delayed film post small bowel series beginning today for bowel movements FINDINGS: Contrast is now almost entirely present in the colon IMPRESSION: Negative for small bowel obstruction No further films are needed
[2025-09-13] MEDS: MORPHINE SULF INJ 4 MG/ML VIAL 1 MG IVP (19:26)
[2025-09-13 20:00] VITALS: BP 117/77; PULSE 84; PULSE 92; RESP 18; TEMP 37.1; O2SAT 93
[2025-09-14] VITALS: BP 115/74; PULSE 79; PULSE 81; RESP 15; TEMP 36.7; O2SAT 92
[2025-09-14 04:00] VITALS: BP 110/75; PULSE 71; PULSE 80; RESP 19; TEMP 36.7; O2SAT 92
[2025-09-14 06:28] LABS: Basophils # (Auto) 0.0 Thou/mm3 (0.0-0.2); Basophils % (Auto) 1 % (0-2.5); Eosinophils # (Auto) 0.1 Thou/mm3 (0.0-0.5); Eosinophils % (Auto) 1 % (0-10); Hematocrit 42.1 % (41.0-53.0); Hemoglobin 14.1 g/dL (13.5-16.0); Immature Granulocytes Auto 0.03 Thou/mm3 (0.00-0.00); Lymphocytes # (Auto) 2.0 Thou/mm3 (1.0-4.8); Lymphocytes % (Auto) 24 % (10-50); Mean Corpuscular HGB Conc 33.5 g/dl (31.0-37.0); Mean Corpuscular Hemoglobin 29.7 pg (25.0-35.0); Mean Corpuscular Volume 89 fL (80-100); Monocytes # (Auto) 0.7 Thou/mm3 (0.0-0.8); Monocytes % (Auto) 9 % (0-12); Neutrophils # (Auto) 5.6 Thou/mm3 (1.8-7.7); Neutrophils % (Auto) 66 % (37-80); Nucleated Red Blood Cell # 0.00 Thou/mm3 (0.00-0.00); Nucleated Red Blood Cell % 0 /100 WBC (0); Platelet Count 304 Thou/mm3 (140-440); RDW Standard Deviation 42.9 fL (35.1-43.9); Red Blood Count 4.75 Miln/mm3 (4.50-5.90); White Blood Count 8.4 Thou/mm3 (3.8-10.6)
[2025-09-14] MEDS: RINGERS LACTATED 1000 ML 1,000 ML 75 ML IV (06:31)
[2025-09-14 06:48] LABS: Alanine Aminotransferase 45 U/L (10-49); Albumin, Serum 4.0 gm/dL (3.5-5.0); Albumin/Globulin Ratio 1.8 (1.2-2.2); Alkaline Phosphatase 65 U/L (46-116); Anion Gap 9 (7-16); Aspartate Amino Transferase 35 U/L (0-34); BUN/Creatinine Ratio 10 Ratio (12-20); Bilirubin,Total 0.7 mg/dL (0.3-1.2); Blood Urea Nitrogen 14 mg/dL (9-23); Calcium 9.2 mg/dL (8.3-10.6); Calcium (Corrected) 9.2 mg/dL (8.5-10.1); Carbon Dioxide 28.6 mMol/L (20.0-31.0); Chloride 106 mMol/L (98-107); Creatinine (Component) 1.4 mg/dL (0.6-1.3); Estimated Creatinine Clearance 56.8 mL/min (>60); Globulin 2.2 gm/dL (2.3-3.5); Glucose 92 mg/dL (74-106); Magnesium 2.3 mg/dL (1.6-2.6); Osmolality,Calculated 287 (275-295); Phosphorous 3.6 mg/dL (2.4-5.1); Potassium 3.7 mMol/L (3.4-5.1); Sodium 144 mMol/L (136-145); Total Protein 6.2 gm/dL (5.7-8.2); eGFR 58 See Note
[2025-09-14 08:00] VITALS: BP 112/76; PULSE 81; PULSE 88; RESP 17; TEMP 36.6; O2SAT 96
[2025-09-14] MEDS: MORPHINE SULF INJ 4 MG/ML VIAL 1 MG IVP ×2 (08:27→13:30)
[2025-09-14 08:40] VITALS: BP 122/82; PULSE 88
[2025-09-14] MEDS: HEPARIN SOD INJ 5000 UNIT/ML VIAL SC (08:40)
[2025-09-14] MEDS: AMIODARONE HCL 200 MG TABLET PO (08:40)
[2025-09-14 12:00] VITALS: BP 121/75; PULSE 79; PULSE 87; RESP 18; TEMP 37; O2SAT 95
--- NOTE | 2025-09-14 15:02 | ESDS_ITS ---
<Statement entered by Dolores Hardy DO - 09/15/25 07:47> I, Dolores Hardy DO, attest that I was physically present for the griffin portions of the service and evaluated the patient with the resident and I reviewed and discussed the case with the resident and agree with the resident's findings and plans of care as documented above <Statement entered by Annmarie Conklin MD - 09/15/25 05:37> Patient was seen and examined by me personally. I have reviewed the below documentation by the team resident and agree with its findings. Discharge plan was discussed with the attending, Dr. Dolores Hardy DO 60-year-old male with past medical history of atrial fibrillation, CKD stage III, hypertension, hypothyroidism, chronic pain and personal history of Lyme dis ease, admitted to [facility] for management of small bowel obstruction. No NG tube was placed per patient's request, was given Gastrografin, overnight patient had resolution of SBO, passed bowel movements. Diet was advanced earlier this morning, patient tolerated well has no current complaints. Patient instructed to follow-up with primary care physician, all home medications were continued. Patient is stable for discharge. Annmarie Conklin MD Internal Medicine, PGY-2 Planned Discharge Date 09/14/25 DS: Providers Provider Date of admission: 09/13/25 14:49 Primary care physician: Abel Henry MD Admitting Provider: Gudelia Enamorado MD Attending Provider on Admission: Gudelia Enamorado MD Consults: 09/13/25 17:24 Referral Sugey Routine Comment: Attending Provider on DC: Faheem Hassan DO Discharging Provider: Faheem Hassan DO DS: Diagnosis Problem List Completed Was Problem List Reviewed/Reconciled?: Yes Hospital Course Hospital Course Hospital course: Summary: Anirudh Thakur is 60yM with PMH of A-fib, CKD stage III disease, hypertension, hypothyroid, chronic pain, and personal history of lyme disease, presented to the ED on 09/13/2025 with worsening upper abdominal pain the night prior to presentation. Patient was admitted for management of Small Bowel Obstruction. The first Gastrografin series showed small bowel obstruction pattern. The next day, 09/14, the second gastrografin x-ray series was negative for SBO. Patient had bowel movement. His labs and vitals were stable and discharged on 09/14/2025. ED course: Vitals: 98.3 F, VT 120, RR 16, BP 145/93, 96% O2 saturation on room air. Labs: WBC 11.2, Hgb 16.6, potassium 4.0, anion gap 12, Cr 1.3, eGFR>60, Glucose 131, UA: Clear yellow urine, Urine protein 1+, Urine Ketones 1+ CXR (09/13/2025): Poor inspiratory effort chest x-ray Gallbladder US (09/13/2025): Normal gallbladder, Normal common bile duct CT abd/pelvis (09/13/2025): Small bowel obstruction pattern Gastrografin X-ray series, 1st (09/13/2025): Small bowel obstruction pattern In ED, patient was given IV hydromorphone 0.5 mg x 1 ,IV morphine 4 mg x 1, IV morphine 2 mg x 2, IV ondansetron 4 mg x 2, and IV metoprolol 5 mg Hospital Course: Upon admission to the hospital, NG tube was ordered, however, patient refused it due to discomfort. Explained thoroughly about risks and benefits, including aspiration risks. Offered lidocaine gel and IV morphine 2mg x1 to reduce the pain and discomfort, but patient ultimately refused. Patient was given IVF LR 75ml/hr and? IV morphine 1mg q6hr prn. On 09/14, gastrografin x-ray series showed negative for small bowel obstruction. Patient's diet was upgraded to full liquid diet. He had bowel movement. His labs and vitals were stable, and was discharged on 09/14/2025. #SBO #Hx of Hernia repair #Hx of A-fib #Hx of CKD stage 3 #HTN #Hx of Hypothyrodism Instructions: Continue taking all other medications as previously prescribed. Please follow up with your primary doctor in 7-10 days. Return to the ED if you develop new or worsening symptoms. Try small, frequent meals and advance as tolerated. Assessment and plan discussed with my attending physician Dr. Hardy and Dr. Conklin (PGY-2) Dr. Hassan (PGY-1) - Internal medicine resident Time Spent with Patient Time attestation: Total time spent providing and/or coordinating discharge services: Time spent: Greater than 30 minutes Exam Vital Signs Temp Pulse Resp BP Pulse Ox O2 Del Method 98.6 F 79 18 121/75 95 Room Air 09/14/25 12:00 09/14/25 12:00 09/14/25 12:00 09/14/25 12:00 09/14/25 12:00 09/14/25 12:00 Narrative Exam General: Well nourished, AAO x3 Eye: PERRL, EOMI, normal conjunctiva, no scleral icterus HENT: Normocephalic, atraumatic, moist oral mucosa Neck: Supple, non-tender, no JVD, no lymphadenopathy Lungs: Non-labored respirations, symmetric chest rise, Clear to auscultate bilaterally, No wheezing, rhonchi, crackles Heart: Peripheral pulses intact bilaterally, Regular Rate and Rhythm. Abdomen: Soft, no palpable masses, Slight distended upper abdomen. Musculoskeletal: Normal range of motion and strength, No cyanosis or edema, No visible joint swelling Skin: Skin is warm, dry, no rashes or lesions. Psychiatric: Cooperative, appropriate mood and affect, Awake and alert, not agitated Neuro: Cranial nerves II-XII grossly intact. Strength 5/5 throughout. Sensations intact to light touch. Discharge Plan Plan Patient Disposition: HOME (Self Care) Patient condition on transfer: Stable Care Plan Goals: Continue taking all other medications as previously prescribed. Please follow up with your primary doctor in 7-10 days. Return to the ED if you develop new or worsening symptoms. Try small, frequent meals and advance as tolerated. Prescriptions/Referrals Prescriptions/Med Rec: Continued gabapentin 600 MG tablet 600 mg PO TID Qty: 0 zolpidem [Ambien CR] 12.5 MG/BOTTLE tablet,ext release multiphase 12.5 mg PO HS Qty: 0 hydrochlorothiazide 25 MG tablet 50 mg PO QAM Qty: 30 0RF carvedilol [Coreg] 3.125 MG tablet 3.125 mg PO BID Qty: 0 aspirin 81 MG tablet,chewable 81 mg PO QDAY Qty: 0 Levothyroxine * (SYNTHROID *) 25 MCG tablet 25 mcg PO QDAY Qty: 0 amiodarone 200 mg tablet 200 mg PO QDAY Patient Comments: TAKE 1 TABLET BY MOUTH EVERY DAY hydrocodone-acetaminophen 10-325 mg tablet 1 tab PO Q6H PRN (Reason: pain) Patient Comments: TAKE 1 TABLET BY MOUTH EVERY 6 HOURS NEEDED ergocalciferol (vitamin D2) 1,250 mcg (50,000 unit) capsule 1,250 mcg PO .QSaturday Patient Comments: TAKE 1 CAPSULE BY MOUTH ONE TIME PER WEEK DIRECTED eplerenone 50 mg tablet 50 mg PO QDAY Referrals: Abel Henry([facility]), [Primary Care Provider, Family Practice] Patient/Caregiver Discharge Instructions Discharge Activity: activity as tolerated Education Materials: Small Bowel Obstruction, How the Colon Works, Obstruction Intestinal Print Language: Pashto Stand Alone Forms: Mamie Award Info., Patient Portal Info Letter Discharge Order Discharge Orders: Discharge (Routine); Ordered 09/14/25 Ordered By: Jeremiah Teixeira Quality Discharge Quality Measures VTE prophylaxis
[2025-09-14 15:49] VITALS: BP 124/73; PULSE 82; RESP 18; TEMP 36.7; O2SAT 92
== END 2025-09-14 16:23 | disposition home or self-care (01) | DRG 390 ==
LOC: SERX 16:07 → SERHOLD 16:17 → S3NX 09-14 05:45 → SERHOLD 09-14 10:40 → S3NX 09-14 10:40
PROVIDERS: Nurse Practitioner Primary Care; Admitting Provider Student in an Organized Health Care Education/Training Program; Emergency Provider Family Medicine; PCP Family Medicine; Visit Provider Student in an Organized Health Care Education/Training Program
DX: K56.609 Unspecified intestinal obstruction, unspecified as to partial versus complete obstruction (principal); I48.91 Unspecified atrial fibrillation; I12.9 Hypertensive chronic kidney disease with stage 1 through stage 4 chronic kidney disease, or unspecified chronic kidney disease; N18.30 Chronic kidney disease, stage 3 unspecified; E03.9 Hypothyroidism, unspecified; G89.29 Other chronic pain; Z53.29 Procedure and treatment not carried out because of patient's decision for other reasons; Z86.19 Personal history of other infectious and parasitic diseases; Z96.651 Presence of right artificial knee joint; Z98.890 Other specified postprocedural states; Z79.899 Other long term (current) drug therapy; Z79.890 Hormone replacement therapy; Z79.82 Long term (current) use of aspirin; Z88.7 Allergy status to serum and vaccine; Z88.8 Allergy status to other drugs, medicaments and biological substances
CPT/HCPCS: 36415; 71045; 74018; 74176; 76705; 80053; 80307; 81001; 83690; 83735; 83880; 84100; 84484; 85025; 85610; 85730; 93005; 96374; 96375; 96376; 99284; J1171; J1644; J2270; J2405; J2470; J3490; J7120; Q9963; A9270